=== PATIENT | male | born 1995 | race Two or more races ===

== ENCOUNTER 2022-02-17 15:39 | Emergency (ER) | payer SELFPAY ==
[~2022-02-17] VITALS: Ht 170.2 cm; Wt 99.8 kg
[2022-02-17 15:43] VITALS: BP 120/72
== END 2022-02-17 16:24 | disposition left against medical advice (07) ==
LOC: EDBD 15:39 → ER 15:39
DX: T50.7X1A Poisoning by analeptics and opioid receptor antagonists, accidental (unintentional), initial encounter (principal); Y92.89 Other specified places as the place of occurrence of the external cause; Z53.21 Procedure and treatment not carried out due to patient leaving prior to being seen by health care provider